=== PATIENT | male | born 1935 | race Caucasian/White ===

== ENCOUNTER 2020-08-25 11:02 | Outpatient (REF) | payer MEDICARE, SELFPAY | END 2020-08-25 11:03 | disposition home or self-care (01) | LOC: HO.WFDLDS 11:02 | PROVIDERS: Visit Provider Internal Medicine | DX: Z20.828 Contact with and (suspected) exposure to other viral communicable diseases (principal) | CPT/HCPCS: 36415; C9803; U0003 ==

== ENCOUNTER 2020-08-30 09:08 | Outpatient (REF) | payer MEDICARE, SELFPAY ==
[2020-08-30 10:41] LABS: MANUAL DIFF FLAG NO
[2020-08-30 10:48] LABS: Basophils Percent Auto 0.2 % (0-2); Hemoglobin 15.1 g/dl (14.0-18.0); Imm Gran Abs Auto 0.05 X10*3/uL (0.00-0.03); Imm Gran Pct Auto 0.4 % (0.0-0.4); Lymphocytes Absolute Auto 1.2 X10*3/uL (1.2-4.9); Lymphocytes Percent Auto 9.2 % (20-40); Mean Corpuscular HGB Conc 33.6 g/dl (31.0-36.0); Mean Corpuscular Hemoglobin 31.9 pg (27.0-33.0); Mean Corpuscular Volume 94.9 fL (80-98); Mean Platelet Volume 11.2 fL (9.4-12.4); Monocytes Absolute Auto 0.3 X10*3/uL (0.1-1.2); Monocytes Percent Auto 2.7 % (2-11); Neutrophils Absolute Auto 11.1 X10*3/uL (2.0-8.3); Neutrophils Percent Auto 87.5 % (45-73); Platelet Count 251 X10*3/uL (160-400); Red Blood Count 4.74 X10*6/uL (4.60-5.80); Red Cell Distribution Width 11.7 % (11.0-16.0); White Blood Count 12.6 X10*3/uL (4.8-10.8)
[2020-08-30 11:20] LABS: C Reactive Protein 0.92 mg/dL (< or = 0.50)
[2020-08-30 11:31] LABS: Erythrocyte Sedimentation Rate 7 MM/HR (0-15)
[2020-08-31 23:36] LABS: Anti Nuclear Antibody Screen NEGATIVE (NEGATIVE)
== END 2020-08-30 09:09 | disposition home or self-care (01) ==
LOC: HO.WFDLDS 09:08
PROVIDERS: Visit Provider Family Medicine
DX: R21 Rash and other nonspecific skin eruption (principal)
CPT/HCPCS: 36415; 85025; 85652; 86038; 86039; 86140

== ENCOUNTER 2020-11-21 12:32 | Outpatient (REF) | payer MEDICARE, SELFPAY ==
[2020-11-21 13:46] LABS: Glucose Urine UA NEG (NEG); Leukocyte Esterase Urine NEG (NEG); Nitrite Urine NEG (NEG); PH 5.5 (5.0-8.0); Specific Gravity - Urine >= 1.030 (1.005-1.025); Urine Blood NEG (NEG); Urine Ketones 5 MG/DL (NEG); Urine Protein TRACE MG/DL (NEG-TRACE)
[2020-11-21 13:50] LABS: Appearance Urine CLEAR; Color Urine AMBER
== END 2020-11-21 12:33 | disposition home or self-care (01) ==
LOC: HO.WFDLDS 12:32
PROVIDERS: Visit Provider Family Medicine
DX: R35.0 Frequency of micturition (principal)
CPT/HCPCS: 81003; 87086

== ENCOUNTER → 2020-11-30 19:23 | Outpatient (REF) | payer MEDICARE, SELFPAY | LOC: HO.SL 19:23 | PROVIDERS: PCP Family Medicine; Visit Provider Family Medicine | DX: G47.33 Obstructive sleep apnea (adult) (pediatric) (principal); G47.19 Other hypersomnia; G47.30 Sleep apnea, unspecified; R06.83 Snoring | CPT/HCPCS: 95811 ==

== ENCOUNTER → 2021-01-30 14:13 | Outpatient (BNVA) | payer MEDICARE, SELFPAY | PROVIDERS: PCP Family Medicine; Visit Provider Internal Medicine | DX: G47.33 Obstructive sleep apnea (adult) (pediatric) (principal); G47.19 Other hypersomnia | CPT/HCPCS: 99202 ==

== ENCOUNTER → 2021-03-23 10:26 | Outpatient (BNVA) | payer MEDICARE, SELFPAY | PROVIDERS: PCP Family Medicine; Visit Provider Urology | DX: R35.0 Frequency of micturition (principal); R39.15 Urgency of urination | CPT/HCPCS: 99202 ==

== ENCOUNTER → 2021-03-27 14:07 | Outpatient (BNVA) | payer MEDICARE, SELFPAY | PROVIDERS: PCP Family Medicine; Visit Provider Internal Medicine | DX: G47.33 Obstructive sleep apnea (adult) (pediatric) (principal); Z99.89 Dependence on other enabling machines and devices | CPT/HCPCS: 99212 ==

== ENCOUNTER 2021-05-08 10:48 | Emergency (ER) | payer MEDICARE, SELFPAY ==
--- NOTE | 2021-05-08 | ECG_ITS ---
Test Reason : SHORT OF BREATH Blood Pressure : / mmHG Vent. Rate : 065 BPM Atrial Rate : 065 BPM P-R Int : 156 ms QRS Dur : 078 ms QT Int : 406 ms P-R-T Axes : 033 -49 016 degrees QTc Int : 422 ms Sinus rhythm with occasional Premature ventricular complexes Left anterior fascicular block Abnormal ECG No previous ECGs available Referred By: Generic ED Physician Electronically Signed By:NOÉ ALDANA
--- NOTE | ~2021-05-08 | XR_ITS ---
EXAMINATION: XR CHEST CLINICAL INFORMATION: SOB and chest pain. COMPARISON: Chest 10/21/2019 TECHNIQUE: Frontal view of the chest was obtained. FINDINGS: The lungs are well-expanded and clear of acute process. The heart size and pulmonary vascularity is normal. No gross bony abnormality seen. XR/XR chest 1V IMPRESSION: Unremarkable chest exam.
[2021-05-08 11:01] VITALS: BP 148/97; PULSE 64; RESP 18; TEMP 36.5; O2SAT 97; BMI 32.9
--- NOTE | 2021-05-08 11:14 | ED_ITS ---
HPI - General Adult General Chief complaint: Dyspnea Stated complaint: difficulty breathing, headache Time Seen by Provider: 05/08/21 11:08 History of Present Illness HPI narrative: This is an 85-year-old male that presents to the emergency department with complaints of shortness of breath, chest pressure, and headache. He states that he has been short of breath for about a month, but last night shortness of breath increased. He states that he was unable to keep his CPAP on at night, because he was so short of breath. He also states he has been having some chest pressure which also started yesterday, and has worsened over time. He states that the pressure is centralized, and does not radiate it is constant in nature. He also reports he has been having intermittent headache s for a few weeks, headaches are to bilateral sides of the head, and radiate down into his job. Past medical history significant for hypertension, MISAEL and emphysema. Past medical history significant for his son dying from a heart attack at a young age. He denies fevers, chills, cough, abdominal pain, weakness, fatigue. He is a former smoker, not currently smoking. Onset (ago): day(s) (2) Severity scale (1-10): 5 Related Data Home Medications Medication Instructions Recorded Confirmed famotidine 20 mg tablet 20 mg PO BID 06/24/20 05/08/21 sennosides 8.6 mg tablet 17.2 mg PO BEDTIME 06/24/20 05/08/21 diphenhydramine HCl 25 mg tablet 50 mg PO Q6H PRN 01/30/21 05/08/21 ibuprofen 800 mg tablet 800 mg PO TID PRN tab 03/27/21 05/08/21 Previous Rx's Medication Instructions Recorded chlorhexidine gluconate 4 % 1 applic TOPICAL Q5M #237 ml 06/24/20 topical liquid (Hibiclens) hydrocortisone 1 % lotion 1 appl TOPICAL BID PRN 10 Days 08/29/20 (Cortisone (hydrocortisone)) #120 ml betamethasone, augmented 0.05 % 1 appl TOPICAL DAILY PRN 30 Days 10/10/20 topical ointment #45 g lisinopril 20 mg tablet 20 mg PO DAILY 90 Days #90 tab 11/07/20 omeprazole 20 mg capsule,delayed 20 mg PO QAM #90 cap 11/10/20 release simvastatin 20 mg tablet 20 mg PO BEDTIME 90 Days #90 tab 12/15/20 tamsulosin 0.4 mg capsule 0.4 mg PO DAILY #90 cap 12/15/20 metoprolol tartrate 25 mg tablet 25 mg PO BID 90 Days #180 tab 01/24/21 mirabegron 25 mg tablet,extended 25 mg PO DAILY 30 Days #30 tab 03/23/21 release 24 hr (Myrbetriq) albuterol sulfate 90 mcg/actuation 2 puff INHALATION Q4-6H PRN #8.5 g 05/08/21 aerosol inhaler loratadine 10 mg tablet (Claritin) 10 mg PO DAILY PRN 7 Days #7 tab 05/08/21 prednisone 20 mg tablet 60 mg PO DAILY 5 Days #15 tab 05/08/21 Allergies Allergy/AdvReac Type Severity Reaction Status Date / Time naproxen [Aleve] Allergy Severe Anaphylaxis Verified 05/08/21 08:46 DUST Allergy Unknown THTROAT Uncoded 11/21/20 11:48 IRRITATION Review of Systems Review of Systems: Yes all other systems are reviewed and are negative Constitutional: Constitutional: Reports difficulty sleeping (Due to shortness of breath) and Reports headache(s) ENT: Reports headache(s) Cardiovascular: Cardiovascular: Reports dyspnea, Reports dyspnea on exertion, Reports orthopnea and Reports other (Chest pressure nonradiating) Respiratory: Respiratory: Reports dyspnea and Reports dyspnea on exertion Gastrointestinal: Gastrointestinal: Reports no additional gastrointestinal complaints Genitourinary: Genitourinary: Reports no additional male genitourinary complaints Musculoskeletal: Musculoskeletal: Reports no additional musculoskeletal complaints Neurologic: Reports headache(s) [facility] Past Medical History Medical History (Updated 05/08/21 @ 13:22 by Skip Miles MD) Bilateral open ankle fractures MISAEL (obstructive sleep apnea) MISAEL on CPAP Surgical History History of throat surgery Hx of appendectomy Hx of shoulder surgery Family History Family History Mother Cancer Father Advanced cirrhosis of liver Son Diabetes Daughter Arthritis Social History Social History Alcohol intake: former Patient Tobacco Use Status: Former Tobacco user Physical Exam Vital Signs: Vital Signs: Last Vital Signs Temp 97.7 F 05/08/21 11:01 Pulse 64 05/08/21 12:21 Resp 18 05/08/21 11:01 BP 148/97 H 05/08/21 11:01 Pulse Ox 97 05/08/21 11:01 Body Mass Index 32.9 Const: General: cooperative, tired appearing and other (Patient speaking in short sentences, evidently having trouble breathing) Orientation/consciousnes s: oriented to person, oriented to place and oriented to time Limitations: other limitations (Patient short of breath, and speaking in short sentences) HENMT: Head: Yes normal to inspection, Yes normocephalic and Yes atraumatic Ears: external ears normal General nose exam: Normal external nose present Face and sinus: Yes normal facial exam Mouth: Normal oral and palatal mucosa present Throat: Yes posterior oropharynx normal Eyes: General: appearance normal, both eyes and all related structures Pupi ls: Equal, round and reactive pupils present Neck: Neck: Yes normal visual inspection, Yes no lymphadenopathy, Yes trachea midline and Yes supple Chest: Chest palpation & inspection: normal inspection of the chest and normal palpation of entire chest wall Resp: Effort & Inspection: abnormal respiratory pattern, labored and pursed lip breathing Auscultation: crackles bilateral and diminished lung sounds bilateral Cardio: Rate: regular rate Rhythm: regular rhythm Heart sounds: S1 normal heart sound present, S2 normal heart sound present and no murmurs GI: Inspection: Yes normal to inspection Palpation (GI): Soft to palpation, nontender and no guarding Auscultation: normal bowel sounds : General: Yes no CVA tenderness Back/Spine/Pelvis: Back: no CVA tenderness Skin: General skin exam: no rashes or lesions noted Neuro: General: oriented to person, oriented to place and oriented to time Cranial nerves: Yes CN's II-XII intact bilaterally and Yes Equal, round and reactive pupils present Cognition (Neuro): normal cognition Motor exam (neuro): 5/5 motor strength present throughout Extrem: General: Yes normal to inspection Psych: Appearance: grossly normal Speech and movement: Normal speech and movement present Affect: normal affect Attitude: cooperative Thought process: Normal thought process present Thought content: Normal thought content present Course Course Course Narrative: This is an 85-year-old male presents the emergency department 2 days of increasing shortness, chest pressure and headaches. Past medical history hypertension, erythema, obstructive sleep apnea. Crackles noted to bilateral lower lobes. Patient with pursed lips, and having difficulty speaking in full sentences. Patient is saturating 97% on room air. Labs, EKG, UA, chest x-ray, continuous cardiac monitoring and one troponin has been ordered at this time Reevaluation(s) Reevaluation #1: 1300 Slight leukocytosis noted 12.3, likley demarginization. Re-evaluated patient, he states he is feeling better at this time after the albuterol and SoluMedrol. He is saturating 98% on room air. Reevaluation #2: Based off of patient's laboratory studies, history and physical exam this is likely a COPD exacerbation. He states he feels much better, and feels well enough to go home. He will be sent home on a burst of steroids, and an albuterol inhaler. He is understanding of the plan, has no further questions or concerns. He is stable for discharge home, with follow-up with his PCP Medical Decision Making Lab Data Result diagrams: 05/08/21 11:45 05/08/21 11:45 Labs: Lab Results 05/08/21 05/08/21 05/08/21 Range/Units 11:45 11:45 11:45 WBC 12.3 H (4.8-10.8) X10*3/uL RBC 4.80 (4.60-5.80) X10*6/uL Hgb 15.1 (14.0-18.0) g/dl Hct 44.4 (42-52) % MCV 92.5 (80-98) fL MCH 31.5 (27.0-33.0) pg MCHC 34.0 (31.0-36.0) g/dl RDW 12.5 (11.0-16.0) % Plt Count 245 (160-400) X10*3/uL MPV 10.4 (9.4-12.4) fL Immature Gran % (Auto) 0.6 H (0.0-0.4) % Neut % (Auto) 77.0 H (45-73) % Lymph % (Auto) 13.0 L (20-40) % [place] % (Auto) 7.7 (2-11) % Eos % (Auto) 1.4 (0-4) % Baso % (Auto) 0.3 (0-2) % Lymph # (Auto) 1.6 (1.2-4.9) X10*3/uL [place] # (Auto) 1.0 (0.1-1.2) X10*3/uL Eos # (Auto) 0.2 (0.0-0.4) X10*3/uL Baso # (Auto) 0.0 (0.0-0.2) X10*3/uL Abs Immat Gran (auto) 0.07 H (0.00-0.03) X10*3/uL Absolute Neuts (auto) 9.5 H (2.0-8.3) X10*3/uL Absolute Nucleated RBC 0.000 (0.0-0.012) X10*3/uL Nucleated RBC % (auto) 0.0 (0.0-0.2) /100WBC PT 12.4 (9.9-13.0) SEC INR 1.1 (0.9-1.1) APTT 30.8 (24.1-38.0) SEC Sodium 140 (135-145) mmol/L Potassium 4.5 (3.3-5.1) mmol/L Chloride 102 (96-108) mmol/L Carbon Dioxide 27 (22-29) mmol/L Anion Gap 16 (12-20) BUN 16 (9-16) mg/dL Creatinine 1.30 (0.5-1.4) mg/dL Estim Creat Clear Calc 45.0 Estimated GFR 53 Random Glucose 105 (60-115) mg/dL Calcium 9.1 (8.4-10.2) mg/dL Total Bilirubin 0.4 (0.0-1.0) mg/dL AST 19 (5-37) U/L ALT 18 (0-40) U/L Alkaline Phosphatase 75 (39-117) U/L B-Natriuretic Peptide (<100) pg/mL Total Protein 6.5 (6.5-8.0) g/dL Albumin 4.2 (3.5-5.0) g/dL Urine Color Urine Appearance Urine pH (5.0-8.0) Ur Specific [place] (1.005-1.025) Urine Protein (NEG-TRACE) MG/DL Urine Glucose (UA) (NEG) MG/DL Urine Ketones (NEG) MG/DL Urine Blood (NEG) Urine Nitrite (NEG) Ur Leukocyte Esterase (NEG) COVID-19 (JOSE L) (Negative) COVID-19 Clin Com 05/08/21 05/08/21 05/08/21 Range/Units 11:45 11:45 12:35 WBC (4.8-10.8) X10*3/uL RBC (4.60-5.80) X10*6/uL Hgb (14.0-18.0) g/dl Hct (42-52) % MCV (80-98) fL MCH (27.0-33.0) pg MCHC (31.0-36.0) g/dl RDW (11.0-16.0) % Plt Count (160-400) X10*3/uL MPV (9.4-12.4) fL Immature Gran % (Auto) (0.0-0.4) % Neut % (Auto) (45-73) % Lymph % (Auto) (20-40) % [place] % (Auto) (2-11) % Eos % (Auto) (0-4) % Baso % (Auto) (0-2) % Lymph # (Auto) (1.2-4.9) X10*3/uL [place] # (Auto) (0.1-1.2) X10*3/uL Eos # (Auto) (0.0-0.4) X10*3/uL Baso # (Auto) (0.0-0.2) X10*3/uL Abs Immat Gran (auto) (0.00-0.03) X10*3/uL Absolute Neuts (auto) (2.0-8.3) X10*3/uL Absolute Nucleated RBC (0.0-0.012) X10*3/uL Nucleated RBC % (auto) (0.0-0.2) /100WBC PT (9.9-13.0) SEC INR (0.9-1.1) APTT (24.1-38.0) SEC Sodium (135-145) mmol/L Potassium (3.3-5.1) mmol/L Chloride (96-108) mmol/L Carbon Dioxide (22-29) mmol/L Anion Gap (12-20) BUN (9-16) mg/dL Creatinine (0.5-1.4) mg/dL Estim Creat Clear Calc Estimated GFR Random Glucose (60-115) mg/dL Calcium (8.4-10.2) mg/dL Total Bilirubin (0.0-1.0) mg/dL AST (5-37) U/L ALT (0-40) U/L Alkaline Phosphatase (39-117) U/L B-Natriuretic Peptide 188 H (<100) pg/mL Total Protein (6.5-8.0) g/dL Albumin (3.5-5.0) g/dL Urine Color YELLOW Urine Appearance CLEAR Urine pH 6.0 (5.0-8.0) Ur Specific [place] 1.025 (1.005-1.025) Urine Protein NEG (NEG-TRACE) MG/DL Urine Glucose (UA) NEG (NEG) MG/DL Urine Ketones NEG (NEG) MG/DL Urine Blood NEG (NEG) Urine Nitrite NEG (NEG) Ur Leukocyte Esterase NEG (NEG) COVID-19 (JOSE L) Negative (Negative) COVID-19 Clin Com See Note Imaging Data Chest x-ray: Attestation: I personally reviewed and interpreted this imaging study as follows: Radiologist's impression: FINDINGS: The lungs are well-expanded and clear of acute process. The heart size and pulmonary vascularity is normal. No gross bony abnormality seen. XR/XR chest 1V IMPRESSION: Unremarkable chest exam. Discharge Plan Discharge Clinical Impression: Shortness of breath, COPD with acute exacerbation Patient Disposition: Home, Self-Care Instructions: COPD (Chronic Obstructive Pulmonary Disease) (ED), Shortness of Breath (ED) Additional Instructions: Drink plenty of fluids Take your medications as prescribed. Follow-up with your primary care provider in two days Return to the emergency department with new or worsening symptoms or if you develop chest pain, fevers, chills or worsening shortness of breath Prescriptions: New loratadine [Claritin] 10 mg tablet 10 mg PO DAILY PRN (Reason: allergy symptoms) 7 Days Qty: 7 RF: 0 albuterol sulfate 90 mcg/actuation HFA aerosol inhaler 2 puff inhalation Q4-6H PRN (Reason: shortness of breath or wheezing) Qty: 8.5 RF: 0 prednisone 20 mg tablet 60 mg PO DAILY 5 Days Qty: 15 RF: 0 No Action omeprazole 20 mg capsule,delayed release(DR/EC) 20 mg PO QAM Qty: 90 RF: 1 tamsulosin 0.4 mg capsule 0.4 mg PO DAILY Qty: 90 RF: 0 simvastatin 20 mg tablet 20 mg PO BEDTIME 90 Days Qty: 90 RF: 3 metoprolol tartrate 25 mg tablet 25 mg PO BID 90 Days Qty: 180 RF: 2 famotidine 20 mg tablet 20 mg PO BID RF: 0 sennosides 8.6 mg tablet 17.2 mg PO BEDTIME RF: 0 chlorhexidine gluconate [Hibiclens] 4 % liquid 1 applic topical Q5M Qty: 237 RF: 2 diphenhydramine HCl 25 mg tablet 50 mg PO Q6H PRNRF: 0 lisinopril 20 mg tablet 20 mg PO DAILY 90 Days Qty: 90 RF: 3 hydrocortisone [Cortisone (hydrocortisone)] 1 % lotion 1 appl topical BID PRN (Reason: skin irritation) 10 Days Qty: 120 RF: 0 betamethasone, augmented 0.05 % ointment 1 appl topical DAILY PRN (Reason: skin irritation) 30 Days Qty: 45 RF: 1 Myrbetriq 25 mg tablet extended release 24 hr 25 mg PO DAILY 30 Days Qty: 30 RF: 1 ibuprofen 800 mg tablet 800 mg PO TID PRNRF: 0
[2021-05-08 11:49] LABS: MANUAL DIFF FLAG NO
[2021-05-08 11:52] LABS: Basophils Percent Auto 0.3 % (0-2); Eosinophils Absolute Auto 0.2 X10*3/uL (0.0-0.4); Eosinophils Percent Auto 1.4 % (0-4); Hematocrit 44.4 % (42-52); Hemoglobin 15.1 g/dl (14.0-18.0); Imm Gran Abs Auto 0.07 X10*3/uL (0.00-0.03); Imm Gran Pct Auto 0.6 % (0.0-0.4); Lymphocytes Absolute Auto 1.6 X10*3/uL (1.2-4.9); Mean Corpuscular Hemoglobin 31.5 pg (27.0-33.0); Mean Corpuscular Volume 92.5 fL (80-98); Mean Platelet Volume 10.4 fL (9.4-12.4); Monocytes Percent Auto 7.7 % (2-11); Neutrophils Absolute Auto 9.5 X10*3/uL (2.0-8.3); Platelet Count 245 X10*3/uL (160-400); Red Cell Distribution Width 12.5 % (11.0-16.0); White Blood Count 12.3 X10*3/uL (4.8-10.8)
[2021-05-08] MEDS: methylPREDNISolone Sod Succ 125 MG/2 ML VIAL IVPUSH (11:53)
[2021-05-08] MEDS: Acetaminophen 325 MG TABLET 975 MG PO (11:53)
[2021-05-08 12:01] LABS: INTERNATIONAL NORM RATIO 1.1 (0.9-1.1); Prothrombin Time 12.4 SEC (9.9-13.0)
[2021-05-08 12:04] LABS: Partial Thromboplastin Time 30.8 SEC (24.1-38.0)
[2021-05-08 12:06] LABS: COVID-19 Test Negative (Negative); IDNOW Serial# 08D9AD1C
[2021-05-08 12:20] LABS: B Type Natriuretic Peptide 188 pg/mL (<100)
[2021-05-08 12:21] VITALS: PULSE 64; O2SAT 95
[2021-05-08 12:21] LABS: Alanine Aminotransferase 18 U/L (0-40); Albumin Level 4.2 g/dL (3.5-5.0); Alkaline Phosphatase 75 U/L (39-117); Anion Gap 16 (12-20); Aspartate Amino Transferase 19 U/L (5-37); Bilirubin Total 0.4 mg/dL (0.0-1.0); Blood Urea Nitrogen 16 mg/dL (9-16); Calcium 9.1 mg/dL (8.4-10.2); Carbon Dioxide 27 mmol/L (22-29); Chloride 102 mmol/L (96-108); Estimated Glomerular Filt Rate 53; Glucose Random 105 mg/dL (60-115); Potassium 4.5 mmol/L (3.3-5.1); Sodium 140 mmol/L (135-145); Total Protein 6.5 g/dL (6.5-8.0)
[2021-05-08] MEDS: Albuterol Sulfate (0.083%) 2.5 MG/3 ML VIAL.NEB 5 MG INHALE (12:21)
[2021-05-08 12:55] LABS: Appearance Urine CLEAR; Color Urine YELLOW; Glucose Urine UA NEG (NEG); Leukocyte Esterase Urine NEG (NEG); Nitrite Urine NEG (NEG); Specific Gravity - Urine 1.025 (1.005-1.025); Urine Blood NEG (NEG); Urine Ketones NEG (NEG); Urine Protein NEG (NEG-TRACE)
== END 2021-05-08 14:31 | disposition home or self-care (01) ==
PROVIDERS: Emergency Provider Emergency Medicine Emergency Medical Services; PCP Family Medicine
DX: J44.1 Chronic obstructive pulmonary disease with (acute) exacerbation (principal); R06.00 Dyspnea, unspecified; R51.9 Headache, unspecified; Z79.899 Other long term (current) drug therapy; Z20.822 Contact with and (suspected) exposure to COVID-19
CPT/HCPCS: 36415; 71045; 80053; 81003; 83880; 85025; 85610; 85730; 87635; 93005; 94640; 96374; 99284; J2930

== ENCOUNTER 2021-05-08 11:53 | Outpatient (REF) | payer MEDICARE, SELFPAY | END 2021-05-08 11:54 | disposition home or self-care (01) | LOC: HO.LNP 11:53 | PROVIDERS: Visit Provider Hospitalist | DX: R39.15 Urgency of urination (principal); R13.10 Dysphagia, unspecified; G47.19 Other hypersomnia; G47.33 Obstructive sleep apnea (adult) (pediatric); Z99.89 Dependence on other enabling machines and devices | CPT/HCPCS: 87086 ==

== ENCOUNTER 2021-06-01 12:09 | Emergency (ER) | payer MEDICARE, SELFPAY ==
--- NOTE | ~2021-06-01 | XR_ITS ---
EXAMINATION: XR CHEST CLINICAL INFORMATION: Shortness of breath COMPARISON: None TECHNIQUE: Frontal view of the chest was obtained. FINDINGS: The cardiac and mediastinal contours are stable. The lungs are clear. There is no pleural effusion or pneumothorax. There are degenerative changes of the spine. XR/XR chest 1V IMPRESSION: No evidence for acute disease in the chest.
--- NOTE | ~2021-06-01 | XR_ITS ---
EXAMINATION: XR KNEE, RIGHT CLINICAL INFORMATION: Pain COMPARISON: None TECHNIQUE: Four views of the right knee. FINDINGS: Bone alignment is normal. No fracture or dislocation is seen. There is degenerative meniscal calcification. Joint spaces are otherwise normal. Soft tissues are normal. XR/XR knee RT 3V IMPRESSION: Degenerative meniscal calcification otherwise unremarkable exam.
[2021-06-01 12:22] VITALS: BP 145/76; PULSE 62; RESP 16; TEMP 36.1; O2SAT 94; BMI 31.9
[2021-06-01 12:53] VITALS: PULSE 57; RESP 19; O2SAT 94
--- NOTE | 2021-06-01 12:54 | PC.NURSE ---
ls clear all luna. able to ambulate short distance w/o SOB. deep breath induces dry cough. reports difficulty expectorating mucous. taking muconex. sb on monitor. denies dizziness.
--- NOTE | 2021-06-01 12:55 | ED.SOB ---
HPI - SOB/Dyspnea General Chief Complaint: Dyspnea Stated Complaint: cough Time Seen by Provider: 06/01/21 12:39 History of Present Illness HPI Narrative: 85-year-old male with a history of COPD. Never been intubated in the past. Patient not on oxygen. Here ready had 2 shots of coronavirus vaccine back in October. Presented today with having coughing upper respiratory symptoms ongoing for about 5 days. Pain when he coughs in the chest. Patient denies any diaphoresis. No leg swelling. No history of blood clots. Patient from home. Patient claims the pain is worse with coughing. Patient denies any fever or chills. No traveling history. No sick contact. He is on lisinopril and has been on it for many years. . Related Data Home Medications Medication Instructions Recorded Confirmed famotidine 20 mg tablet 20 mg PO BID 06/24/20 05/08/21 sennosides 8.6 mg tablet 17.2 mg PO BEDTIME 06/24/20 05/08/21 diphenhydramine HCl 25 mg tablet 50 mg PO Q6H PRN 01/30/21 05/08/21 ibuprofen 800 mg tablet 800 mg PO TID PRN tab 03/27/21 05/08/21 Previous Rx's Medication Instructions Recorded chlorhexidine gluconate 4 % 1 applic TOPICAL Q5M #237 ml 06/24/20 topical liquid (Hibiclens) hydrocortisone 1 % lotion 1 appl TOPICAL BID PRN 10 Days 08/29/20 (Cortisone (hydrocortisone)) #120 ml betamethasone, augmented 0.05 % 1 appl TOPICAL DAILY PRN 30 Days 10/10/20 topical ointment #45 g lisinopril 20 mg tablet 20 mg PO DAILY 90 Days #90 tab 11/07/20 simvastatin 20 mg tablet 20 mg PO BEDTIME 90 Days #90 tab 12/15/20 tamsulosin 0.4 mg capsule 0.4 mg PO DAILY #90 cap 12/15/20 metoprolol tartrate 25 mg tablet 25 mg PO BID 90 Days #180 tab 01/24/21 mirabegron 25 mg tablet,extended 25 mg PO DAILY 30 Days #30 tab 03/23/21 release 24 hr (Myrbetriq) albuterol sulfate 90 mcg/actuation 2 puff INHALATION Q4-6H PRN #8.5 g 05/08/21 aerosol inhaler loratadine 10 mg tablet (Claritin) 10 mg PO DAILY PRN 7 Days #7 tab 05/08/21 prednisone 20 mg tablet 60 mg PO DAILY 5 Days #15 tab 05/08/21 omeprazole 20 mg capsule,delayed 20 mg PO QAM #90 cap 05/12/21 release benzonatate 100 mg capsule 100 mg PO TID PRN #20 cap 06/01/21 (Tessalon Perles) doxycycline hyclate 100 mg capsule 100 mg PO BID 7 Days #14 cap 06/01/21 prednisone 20 mg tablet 40 mg PO DAILY 4 Days #10 tab 06/01/21 Allergies Allergy/AdvReac Type Severity Reaction Status Date / Time naproxen [Aleve] Allergy Severe Anaphylaxis Verified 06/01/21 11:19 DUST Allergy Unknown THTROAT Uncoded 06/01/21 11:19 IRRITATION Review of Systems Review of Systems: Positive coughing upper respiratory symptoms All systems reviewed otherwise negative PMFSH Past Medical History Attestation statement: The following information was validated with the patient. Medical History Bilateral open ankle fractures MISAEL (obstructive sleep apnea) MISAEL on CPAP Surgical History History of throat surgery Hx of appendectomy Hx of shoulder surgery Family History Family History Mother Cancer Father Advanced cirrhosis of liver Son Diabetes Daughter Arthritis Social History Social History Household Members: Children Housing: House Alcohol intake: never Patient Tobacco Use Status: Former Tobacco user Use of substances other than those prescribed or required for medical reasons: No Advance Directives: No Advance Directives Information Provided: Yes Current occupational status: retired Physical Exam Vital Signs: Vital Signs: Last Vital Signs Temp 97 F 06/01/21 12:22 Pulse 62 06/01/21 13:22 Resp 18 06/01/21 13:22 BP 146/78 H 06/01/21 13:22 Pulse Ox 92 06/01/21 13:22 Body Mass Index 31.9 Appearance: Alert. Oriented X3. No acute distress. Eyes: Pupils equal, round and reactive to light. ENT: Pharynx normal. Neck: Normal inspection. Neck supple. No lymph nodes noted. No crepitus CVS: Normal heart rate and rhythm. Pulses normal. Normal S1 and S2 Respiratory: No respiratory distress. Breath sounds normal. No Wheezing. No rales Abdomen: Soft and nontender. No rigidity. No distention. good BS x4 Skin: Skin warm and dry. Normal skin color. Normal skin turgor. Extremities: No lower extremity edema. Neurovascular intact to all extremities. No Lacerations. No Rash Neuro: Oriented X 3. No motor deficit. No sensory deficit. Moving all extermities. No slurred speech MDM - SOB/Dyspnea MDM Narrative Medical decision making narrative: Patient's chest x-ray showed no focal infiltrate. BNP is 111 no evidence for congestive heart failure. Patient's electrolytes are normal. Troponin was negative. Will give patient cough medications. Doxycycline for bronchitis. In stable condition. Steroid for COPD. Patient warned about using steroid and doxycycline. He needs to take some food. In stable condition. Will discharge home. EKG showed a sinus pattern heart rate is 62 OH QRS QT within normal limits is no acute ST segment elevation noted. Differential Diagnosis Differential diagnosis: Likely acute exacerbation of chronic obstructive airways disease, congestive heart failure, pneumonia, asthma with exacerbation and pulmonary embolism Medical Records Attestation: I reviewed the patient's medical records. Lab Data Attestation: I reviewed the patient's lab results. Result diagrams: 06/01/21 13:06/01/21 13:01 Labs: Lab Results 06/01/21 06/01/21 06/01/21 Range/Units 13:01 13:01 13:01 WBC 8.8 (4.8-10.8) X10*3/uL RBC 4.54 L (4.60-5.80) X10*6/uL Hgb 14.3 (14.0-18.0) g/dl Hct 43.0 (42-52) % MCV 94.7 (80-98) fL MCH 31.5 (27.0-33.0) pg MCHC 33.3 (31.0-36.0) g/dl RDW 12.6 (11.0-16.0) % Plt Count 204 (160-400) X10*3/uL MPV 10.7 (9.4-12.4) fL Immature Gran % (Auto) 0.6 H (0.0-0.4) % Neut % (Auto) 69.4 (45-73) % Lymph % (Auto) 16.6 L (20-40) % [place] % (Auto) 8.3 (2-11) % Eos % (Auto) 4.8 H (0-4) % Baso % (Auto) 0.3 (0-2) % Lymph # (Auto) 1.5 (1.2-4.9) X10*3/uL [place] # (Auto) 0.7 (0.1-1.2) X10*3/uL Eos # (Auto) 0.4 (0.0-0.4) X10*3/uL Baso # (Auto) 0.0 (0.0-0.2) X10*3/uL Abs Immat Gran (auto) 0.05 H (0.00-0.03) X10*3/uL Absolute Neuts (auto) 6.1 (2.0-8.3) X10*3/uL Absolute Nucleated RBC 0.000 (0.0-0.012) X10*3/uL Nucleated RBC % (auto) 0.0 (0.0-0.2) /100WBC Sodium (135-145) mmol/L Potassium (3.3-5.1) mmol/L Chloride (96-108) mmol/L Carbon Dioxide (22-29) mmol/L Anion Gap (12-20) BUN (9-16) mg/dL Creatinine (0.5-1.4) mg/dL Estim Creat Clear Calc Estimated GFR Random Glucose (60-115) mg/dL Calcium (8.4-10.2) mg/dL Troponin I High Sens < 3.5 (<3.5-35.0) ng/L B-Natriuretic Peptide 111 H (<100) pg/mL Coronavirus (PCR) NEGATIVE (Negative) Influenza Type A (PCR) NEGATIVE (Negative) Influenza Type B (PCR) NEGATIVE (Negative) RSV RNA Qual (PCR) NEGATIVE (Negative) 06/01/21 Range/Units 13:01 WBC (4.8-10.8) X10*3/uL RBC (4.60-5.80) X10*6/uL Hgb (14.0-18.0) g/dl Hct (42-52) % MCV (80-98) fL MCH (27.0-33.0) pg MCHC (31.0-36.0) g/dl RDW (11.0-16.0) % Plt Count (160-400) X10*3/uL MPV (9.4-12.4) fL Immature Gran % (Auto) (0.0-0.4) % Neut % (Auto) (45-73) % Lymph % (Auto) (20-40) % [place] % (Auto) (2-11) % Eos % (Auto) (0-4) % Baso % (Auto) (0-2) % Lymph # (Auto) (1.2-4.9) X10*3/uL [place] # (Auto) (0.1-1.2) X10*3/uL Eos # (Auto) (0.0-0.4) X10*3/uL Baso # (Auto) (0.0-0.2) X10*3/uL Abs Immat Gran (auto) (0.00-0.03) X10*3/uL Absolute Neuts (auto) (2.0-8.3) X10*3/uL Absolute Nucleated RBC (0.0-0.012) X10*3/uL Nucleated RBC % (auto) (0.0-0.2) /100WBC Sodium 140 (135-145) mmol/L Potassium 5.0 (3.3-5.1) mmol/L Chloride 103 (96-108) mmol/L Carbon Dioxide 27 (22-29) mmol/L Anion Gap 15 (12-20) BUN 14 (9-16) mg/dL Creatinine 1.34 (0.5-1.4) mg/dL Estim Creat Clear Calc 45.9 Estimated GFR 51 Random Glucose 132 H (60-115) mg/dL Calcium 9.1 (8.4-10.2) mg/dL Troponin I High Sens (<3.5-35.0) ng/L B-Natriuretic Peptide (<100) pg/mL Coronavirus (PCR) (Negative) Influenza Type A (PCR) (Negative) Influenza Type B (PCR) (Negative) RSV RNA Qual (PCR) (Negative) Discharge Plan Discharge Clinical Impression: Bronchitis Patient Disposition: Home, Self-Care Instructions: Acute Bronchitis (ED) Prescriptions: New doxycycline hyclate 100 mg capsule 100 mg PO BID 7 Days Qty: 14 RF: 0 benzonatate [Tessalon Perles] 100 mg capsule 100 mg PO TID PRN (Reason: cough) Qty: 20 RF: 0 prednisone 20 mg tablet 40 mg PO DAILY 4 Days Qty: 10 RF: 0 No Action tamsulosin 0.4 mg capsule 0.4 mg PO DAILY Qty: 90 RF: 0 simvastatin 20 mg tablet 20 mg PO BEDTIME 90 Days Qty: 90 RF: 3 metoprolol tartrate 25 mg tablet 25 mg PO BID 90 Days Qty: 180 RF: 2 omeprazole 20 mg capsule,delayed release(DR/EC) 20 mg PO QAM Qty: 90 RF: 1 loratadine [Claritin] 10 mg tablet 10 mg PO DAILY PRN (Reason: allergy symptoms) 7 Days Qty: 7 RF: 0 albuterol sulfate 90 mcg/actuation HFA aerosol inhaler 2 puff inhalation Q4-6H PRN (Reason: shortness of breath or wheezing) Qty: 8.5 RF: 0 prednisone 20 mg tablet 60 mg PO DAILY 5 Days Qty: 15 RF: 0 famotidine 20 mg tablet 20 mg PO BID RF: 0 sennosides 8.6 mg tablet 17.2 mg PO BEDTIME RF: 0 chlorhexidine gluconate [Hibiclens] 4 % liquid 1 applic topical Q5M Qty: 237 RF: 2 diphenhydramine HCl 25 mg tablet 50 mg PO Q6H PRNRF: 0 lisinopril 20 mg tablet 20 mg PO DAILY 90 Days Qty: 90 RF: 3 hydrocortisone [Cortisone (hydrocortisone)] 1 % lotion 1 appl topical BID PRN (Reason: skin irritation) 10 Days Qty: 120 RF: 0 betamethasone, augmented 0.05 % ointment 1 appl topical DAILY PRN (Reason: skin irritation) 30 Days Qty: 45 RF: 1 Myrbetriq 25 mg tablet extended release 24 hr 25 mg PO DAILY 30 Days Qty: 30 RF: 1 ibuprofen 800 mg tablet 800 mg PO TID PRNRF: 0 Referrals: Mina Jerez MD [Primary Care Provider] - 2 days
[2021-06-01] MEDS: Albuterol/Iprat 2.5/0.5MG 3 ML AMPUL.NEB INHALE (13:05)
[2021-06-01 13:07] VITALS: PULSE 55; O2SAT 97
[2021-06-01 13:11] LABS: MANUAL DIFF FLAG NO
[2021-06-01 13:13] LABS: Basophils Percent Auto 0.3 % (0-2); Eosinophils Absolute Auto 0.4 X10*3/uL (0.0-0.4); Eosinophils Percent Auto 4.8 % (0-4); Hemoglobin 14.3 g/dl (14.0-18.0); Imm Gran Abs Auto 0.05 X10*3/uL (0.00-0.03); Imm Gran Pct Auto 0.6 % (0.0-0.4); Lymphocytes Absolute Auto 1.5 X10*3/uL (1.2-4.9); Lymphocytes Percent Auto 16.6 % (20-40); Mean Corpuscular HGB Conc 33.3 g/dl (31.0-36.0); Mean Corpuscular Hemoglobin 31.5 pg (27.0-33.0); Mean Corpuscular Volume 94.7 fL (80-98); Mean Platelet Volume 10.7 fL (9.4-12.4); Monocytes Absolute Auto 0.7 X10*3/uL (0.1-1.2); Monocytes Percent Auto 8.3 % (2-11); Neutrophils Absolute Auto 6.1 X10*3/uL (2.0-8.3); Neutrophils Percent Auto 69.4 % (45-73); Platelet Count 204 X10*3/uL (160-400); Red Blood Count 4.54 X10*6/uL (4.60-5.80); Red Cell Distribution Width 12.6 % (11.0-16.0); White Blood Count 8.8 X10*3/uL (4.8-10.8)
[2021-06-01] MEDS: methylPREDNISolone Sod Succ 125 MG/2 ML VIAL IVPUSH (13:18)
[2021-06-01 13:22] VITALS: BP 146/78; PULSE 62; RESP 18; O2SAT 92
[2021-06-01 13:27] LABS: Anion Gap 15 (12-20); Blood Urea Nitrogen 14 mg/dL (9-16); Calcium 9.1 mg/dL (8.4-10.2); Carbon Dioxide 27 mmol/L (22-29); Chloride 103 mmol/L (96-108); Creatinine Clr Calc Pharmacy 45.9; Estimated Glomerular Filt Rate 51; Glucose Random 132 mg/dL (60-115); Sodium 140 mmol/L (135-145)
[2021-06-01 13:32] LABS: B Type Natriuretic Peptide 111 pg/mL (<100); Troponin-I High Sensitivity < 3.5 ng/L (<3.5-35.0)
[2021-06-01 14:13] LABS: Influenza A PCR NEGATIVE (Negative); Influenza B PCR NEGATIVE (Negative); Resp Syncy Virus RNA Qual PCR NEGATIVE (Negative); SARS COV2 PCR INHOUSE NEGATIVE (Negative)
--- NOTE | 2021-06-01 14:34 | ECG_ITS ---
Test Reason : chest pain Blood Pressure : / mmHG Vent. Rate : 059 BPM Atrial Rate : 059 BPM P-R Int : 160 ms QRS Dur : 080 ms QT Int : 414 ms P-R-T Axes : 032 -57 -18 degrees QTc Int : 409 ms Sinus bradycardia Left axis deviation Nonspecific T wave abnormality Abnormal ECG T wave amplitude has decreased in Lateral leads Referred By: Hattie Grier Electronically Signed By:SALOME JARRELL MD
--- NOTE | 2021-06-01 14:42 | PC.NURSE ---
pt resting queitly. intermittent cough noted. update to son neris on phone.
== END 2021-06-01 14:55 | disposition home or self-care (01) ==
PROVIDERS: Emergency Provider Emergency Medicine Emergency Medical Services; PCP Family Medicine
DX: J40 Bronchitis, not specified as acute or chronic (principal); J44.9 Chronic obstructive pulmonary disease, unspecified; G47.33 Obstructive sleep apnea (adult) (pediatric); Z79.899 Other long term (current) drug therapy; Z20.822 Contact with and (suspected) exposure to COVID-19
CPT/HCPCS: 0241U; 36415; 71045; 73562; 80048; 83880; 84484; 85025; 93005; 94640; 96374; 99284; J2930

== ENCOUNTER → 2021-06-27 13:43 | Outpatient (BNVA) | payer MEDICARE, SELFPAY | PROVIDERS: PCP Family Medicine; Visit Provider Internal Medicine | DX: G47.33 Obstructive sleep apnea (adult) (pediatric) (principal); J44.1 Chronic obstructive pulmonary disease with (acute) exacerbation; Z99.89 Dependence on other enabling machines and devices | CPT/HCPCS: 99212 ==

== ENCOUNTER 2021-09-22 18:22 | Outpatient (REF) | payer MEDICARE, SELFPAY ==
[2021-09-22 19:05] LABS: Influenza A PCR NEGATIVE (Negative); Influenza B PCR NEGATIVE (Negative); Resp Syncy Virus RNA Qual PCR NEGATIVE (Negative); SARS COV2 PCR INHOUSE NEGATIVE (Negative)
== END 2021-09-22 18:23 | disposition home or self-care (01) ==
LOC: HO.LNP 18:22
PROVIDERS: Visit Provider Family Medicine
DX: Z20.822 Contact with and (suspected) exposure to COVID-19 (principal); R05.9 Cough, unspecified
CPT/HCPCS: 0241U

== ENCOUNTER → 2024-04-16 11:28 | Outpatient (RCR) | payer MEDICARE, SELFPAY ==
[2020-10-25 13:16] VITALS: BP 189/92; PULSE 57; RESP 12; TEMP 36.8; O2SAT 96; BMI 32.6
--- NOTE | 2020-10-25 14:15 | P.CNHO_ITS ---
Subjective - Subjective Chief complaint: CONSULT FOR RECURRENT MALIGNANT MELANOMA . Actually patient has BCC. Patient: new to practice Consult date: 10/25/20 Requesting Physician: Solitario. Primary Care Provider: Mina Jerez MD Medical Summary: DIAGNOSIS: 1. HISTORY OF MELANOMA RIGHT CHEEK. 2. RECURRENT MELANOMA BEHIND LEFT EAR LOBE. HPI - Consult Narrative Reason for consult: Consult for recurrent melanoma. Narrative: Sridhar Crawley is a pleasant 85 year old gentleman with a history of skin cancer, ? melanoma involving his right cheek couple of years ago. He had wide resection followed by skin grafting. He is being followed by Dermatology. Upon talking to Dr. Montiel, it ap pears that he actually had basal cell carcinoma. They noted a lesion behind his left earlobe last year. That was removed by SHUKRI Ramirez at [facility]. A biopsy from 08/30/2020: Left central parietal scab biopsy by shave method: Pigmented basal cell carcinoma, nodular type. Now there is concern for another lesion in that location. He has been seen by Dr. Montiel on 10/11. He is actually scheduled for excision, Mohs Micr surgery, on 11/[address] Montiel, from [facility]. REVIEW OF SYSTEMS: He feels extremely fatigued. Denies fever nor chills. He is sleepy all the time. He enjoys a good appetite. He has gained weight. He does get headaches but no dizziness. No chest pain but he does get short of breath on exertion. No abdominal pain nausea vomiting heartburn indigestion. His bowels are rather constipated. No gross blood in the stools. He does have increased frequency of micturition. He has to get up several times at night. He has had an extensive evaluation which was non revealing. Denies joint pains or muscle aches. He does tend to get depressed. He does have skin rash is on his forehead. He has been diagnosed with eczema. Family history: Mom of throat cancer. Dad of cirrhosis of the liver. He was a drinker. No known melanoma in the family. Social history: He was a road truck terminal manager. He lived in [place]. He was a lee. He has had a lot of sun exposure driving to [place]. He is . He has 5 children. He used to smoke and drink heavily however quit at the age of 46 when he joined the [employer]. Review of Systems - Constitutional Reports system reviewed and no additional complaints, except as documented, Reports headache(s), Reports increased appetite, Reports lack of energy, Reports weight gain, Denies anorexia - Eyes Reports system reviewed and no additional complaints, except as documented - ENT Reports system reviewed and no additional complaints, except as documented, Denies mouth lesions - Cardiovascular Reports system reviewed and no additional complaints, except as documented, Denies chest pain with activity - Respiratory Reports no additional respiratory complaints, Denies chest congestion - Gastrointestinal Reports system reviewed and no additional complaints, except as documented, Denies abdominal pain, Denies black, tarry stools - Genitourinary Genitourinary: Reports no additional male genitourinary complaints, Denies blood in urine - Musculoskeletal Reports system reviewed and no additional complaints, except as documented, Denies back pain - Integumentary/Breasts Skin/Breast: Reports no additional skin complaints, Reports lesions, Reports sensitivity to light - Neurologic Reports system reviewed and no additional complaints, except as documented - Psychiatric Reports system reviewed and no additional complaints, except as documented, Denies abnormal sleep pattern - Endocrine Reports no additional endocrine complaints, Denies excessive sweating - Hematologic/Lymphatic Reports system reviewed and no additional complaints, except as documented, Denies easy bruising - Allergic/Immunologic Reports system reviewed and no additional complaints, except as documented, Denies GI upset with certain foods Oncology Screenings - ECOG Performance Status ECOG Performance Status: 0 [facility] Medical History: Medical History (Last Updated 10/25/20 @ 13:25 by Maggie Irby) Bilateral open ankle fractures Functional capacity: independent ambulation Patient : No Family History: Family History (Last Updated 10/25/20 @ 13:28 by Maggie Irby) Mother Cancer Father Advanced cirrhosis of liver Son Diabetes Daughter Arthritis Surgical History: Surgical History (Last Updated 10/25/20 @ 13:25 by Maggie Irby) History of throat surgery Hx of appendectomy Hx of shoulder surgery Social History: Social History (Last Updated 10/25/20 @ 13:22 by Maggie Irby) Alcohol History: Alcohol intake: former Alcohol History Details: Alcohol intake frequency: does not drink Tobacco History: Smoking Status: Former smoker Substance Use History: Use of substances other than those prescribed or required for medical reasons : No Nutrition Assessment: Recently lost weight without trying: No Eating poorly because of decreased appetite: No Nutrition Risks: No Nutritional Risk Patient : No Smoking status: Former smoker Home Medications and Allergies Home Medications Medication Instructions Recorded Confirmed Type diphenhydramine HCl 25 mg tablet 50 mg PO Q6H 06/24/20 10/25/20 History famotidine 20 mg tablet 20 mg PO BID 06/24/20 10/25/20 History hydrochlorothiazide 25 mg tablet 25 mg PO QAM 06/24/20 10/25/20 History lisinopril 10 mg tablet 10 mg PO DAILY 06/24/20 10/25/20 History metoprolol tartrate 25 mg tablet 25 mg PO BID 06/24/20 10/25/20 History sennosides 8.6 mg tablet 17.2 mg PO BEDTIME 06/24/20 10/25/20 History simvastatin 20 mg tablet 20 mg PO BEDTIME 06/24/20 10/25/20 History Allergies Allergy/AdvReac Type Severity Reaction Status Date / Time naproxen [Aleve] Allergy Severe Anaphylaxis Verified 08/29/20 11:52 DUST Allergy Unknown THTROAT Uncoded 06/24/20 09:29 IRRITATION Physical Exam Vital signs: Vital Signs Temp 98.2 F 10/25/20 13:16 Pulse 57 10/25/20 13:16 Resp 12 10/25/20 13:16 BP 189/92 H 10/25/20 13:16 Pulse Ox 96 10/25/20 13:16 Intake & Output 10/24/20 10/25/20 10/25/20 18:59 06:59 18:59 Other: Weight 91.8 kg [place] Weight in Grams [id number] Weight 91.8 kg - Constitutional Present: no acute distress - Routine HEENT Exam Head: Present: normal inspection ENT: Present: mucous membranes moist - Routine Neck Exam Present: supple - Routine Respiratory Exam Present: CTAB - Routine Cardiovascular Exam Cardiovascular: Present: RRR, S1, S2 - Routine Abdominal Exam Present: normal bowel sounds, nontender - Routine Extremities Exam Present: nontender Hem/Onc Consult Result - Labs CBC & Chem 7: 10/25/20 14:10 10/25/20 14:10 Assessment and Plan (1) Malignant melanoma Status: Acute This is a pleasant 85-year-old gentleman with a ? history of melanoma on his right cheek diagnosed a couple of years ago. This was incorrect information. Upon talking to his customer training specialist it was actually basal cell carcinoma. He had wide excision followed by skin grafting. He then had recurrence of BCC, behind his left ear. That was excised last year. He now has a new suspicious lesion, behind his left ear. He is scheduled for surgery 11/12. By Dr. Montiel from [facility]. He will be undergoing Mohs micro dissection, for a straightforward case of basal cell carcinoma. PLAN: I have requested for the records, to review the details of pathology. Will make further recommendations based upon the results. Will check baseline labs including LDH which is a tumor marker, for melanoma, however later I found out he does not have it. I wish him the best of luck with his upcoming procedure. He does not need a follow-up visit here. Thank you, CC: Dr. Montiel. Dr. Mina Jerez.
[2020-10-25 14:44] LABS: MANUAL DIFF FLAG NO
--- NOTE | 2020-10-25 14:54 | MHC.HEMONCSW ---
PATIENT IS A 85 YEAR OLD MALE. ALERT, INDEPENDENT BUT DUE TO AGE HE ONLY RECENTLY STOPPED DRIVING. DIAGNOSIS IS POSSIBLE RECURRENT MALIGNANT MELANOMA. HE WILL HAVE BIOPSY NEXT WEEK. HISTORY OF MELANOMA WITH EXCISIONS. REPORTS HE IS DEPRESSED SOMEWHAT ABOUT HIS HEALTH BUT HAS PAUL IN GOD THAT GETS HIM THRU THESE TIMES. HE AND RESIDE WITH THEIR DAUGHTER AND HER FAMILY. REASSURANCE, EDUCATION AND SUPPORT PROVIDED. HE IS AWARE OF MY AVAILABILITY.
--- NOTE | 2020-10-25 15:01 | MHC.HEMONCSW ---
health care proxies are his and daughter. reports he will provide us with a copy.
[2020-10-25 15:05] LABS: Basophils Percent Auto 0.4 % (0-2); Eosinophils Absolute Auto 0.3 X10*3/uL (0.0-0.4); Eosinophils Percent Auto 3.5 % (0-4); Hematocrit 43.1 % (42-52); Hemoglobin 14.4 g/dl (14.0-18.0); Imm Gran Abs Auto 0.03 X10*3/uL (0.00-0.03); Imm Gran Pct Auto 0.3 % (0.0-0.4); Lymphocytes Absolute Auto 2.2 X10*3/uL (1.2-4.9); Lymphocytes Percent Auto 23.5 % (20-40); Mean Corpuscular HGB Conc 33.4 g/dl (31.0-36.0); Mean Corpuscular Hemoglobin 31.4 pg (27.0-33.0); Mean Corpuscular Volume 94.1 fL (80-98); Mean Platelet Volume 10.9 fL (9.4-12.4); Monocytes Absolute Auto 0.7 X10*3/uL (0.1-1.2); Monocytes Percent Auto 7.4 % (2-11); Neutrophils Absolute Auto 6.1 X10*3/uL (2.0-8.3); Neutrophils Percent Auto 64.9 % (45-73); Platelet Count 224 X10*3/uL (160-400); Red Blood Count 4.58 X10*6/uL (4.60-5.80); Red Cell Distribution Width 12.9 % (11.0-16.0); White Blood Count 9.3 X10*3/uL (4.8-10.8)
[2020-10-25 15:40] LABS: Alanine Aminotransferase 17 U/L (0-40); Albumin Level 4.4 g/dL (3.5-5.0); Alkaline Phosphatase 66 U/L (39-117); Anion Gap 12 (12-20); Aspartate Amino Transferase 19 U/L (5-37); Bilirubin Total 0.4 mg/dL (0.0-1.0); Blood Urea Nitrogen 19 mg/dL (9-16); Carbon Dioxide 31 mmol/L (22-29); Chloride 104 mmol/L (96-108); Creatinine Clr Calc Pharmacy 52.5; Estimated Glomerular Filt Rate > 60; Glucose Random 83 mg/dL (60-115); Lactate Dehydrogenase 262 U/L (118-273); Potassium 4.4 mmol/L (3.3-5.1); Sodium 143 mmol/L (135-145); Total Protein 6.6 g/dL (6.5-8.0)
--- NOTE | 2020-10-25 15:50 | MHC.HEMONCMA ---
Pt presents for consult on melanoma. History reviewed and labs were drawn. Pathology report requested from [facility].
== END | disposition home or self-care (01) ==
LOC: HO.ONC 10-25 12:38
PROVIDERS: PCP Family Medicine; Referring Provider Family Medicine; Visit Provider Internal Medicine Medical Oncology
DX: L98.9 Disorder of the skin and subcutaneous tissue, unspecified (principal); Z85.828 Personal history of other malignant neoplasm of skin
CPT/HCPCS: 36415; 80053; 83615; 85025; 99204